=== PATIENT | male | born 1950 | race Caucasian/White ===

== ENCOUNTER 2017-10-20 07:08 | Emergency (ER) | payer MEDICARE, BC ==
--- NOTE | 2017-10-20 07:46 | EDM.PDOC ---
ED HPI GENERAL MEDICAL PROBLEM - General Time Seen by Provider: 10/20/17 07:20 Source of Information: Reports: Patient History Limitations: Reports: No Limitations - History of Present Illness INITIAL COMMENTS - FREE TEXT/NARRATIVE: According to patient he claims he has been having a uneasy feeling on the left side of the chest since last evening. 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 Later in the evening he would feel his heart racing and would resolve by itself , it was not asso with any dizziness or chest pain. Once the palpitations cleared he started to feel uneasy feeling in the left chest. the sensation does not eet worse with exertion. Pt claims he walks every day and walking makes it feel better. The feeling is constant. No sweating, nausea or vomiting. He has incontinence of stool or urine. Apparently he claims he has had murmur and had ECHO few weeks ago. Onset Date: 10/19/17 Onset Time: 18:00 Location: Reports: Chest Quality: Reports: Pressure Severity: Mild Improves with: Reports: None Worsens with: Reports: None Associated Symptoms: Reports: Chest Pain (more of pressure or uneasy sensation) . Denies: Confusion, Cough, Fever/Chills, Headaches, Nausea/Vomiting, Rash, Seizure, Shortness of Breath, Syncope, Weakness Left Chest Pain Score (Numeric/FACES): 3 - Related Data Allergies Allergy/AdvReac Type Severity Reaction Status Date / Time No Known Allergies Allergy Verified 12/31/14 09:04 Home Meds: Home Meds Aspirin [Halfprin] 81 mg PO DAILY 12/31/14 [History] Cholecalciferol (Vitamin D3) [Cholecalciferol] 1 gm MC DAILY 12/31/14 [History] Losartan [Cozaar] 50 mg PO DAILY 12/31/14 [History] [place]-3 Fatty Acids [[place]-3] 1,000 mg PO DAILY 12/31/14 [History] Simvastatin 40 mg PO DAILY 12/31/14 [History] Social & Family History - Tobacco Use Smoking Status *Q: Former Smoker Years of Tobacco use: 6 Second Hand Smoke Exposure: No - Alcohol Use Days Per Week of Alcohol Use: 5 Number of Drinks Per Day: 2 Total Drinks Per Week: 10 - Recreational Drug Use Recreational Drug Use: No ED ROS GENERAL - Review of Systems Review Of Systems: See Below Constitutional: Denies: Fever, Chills HEENT: Denies: Rhinitis, Sinus Problem, Throat Pain, Throat Swelling Respiratory: Denies: Shortness of Breath, Cough, Sputum Cardiovascular: Denies: Chest Pain, Dyspnea on Exertion, Edema, Lightheadedness GI/Abdominal: Denies: Flatus, Hematemesis, Hematochezia, Stool Incontinence : Denies: Dysuria, Incontinence, Urinary Retention Musculoskeletal: Denies: Joint Pain, Joint Swelling Skin: Denies: Pruritis, Rash ED EXAM, GENERAL - Physical Exam Exam: See Below Exam Limited By: No Limitations General Appearance: Alert, WD/WN, No Apparent Distress Eye Exam: Bilateral Eye: EOMI, PERRL Ears: Normal External Exam, Normal Canal, Hearing Grossly Normal, Normal TMs Ear Exam: Bilateral Ear: Auricle Normal, Canal Normal, TM normal Nose: Normal Inspection, Normal Mucosa, No Blood Throat/Mouth: Normal Inspection, Normal Lips, Normal Teeth, Normal Gums, Normal Oropharynx, Normal Voice, No Airway Compromise Head: Atraumatic, Normocephalic Neck: Normal Inspection, Supple, Non-Tender, Full Range of Motion Respiratory/Chest: No Respiratory Distress, Lungs Clear, Normal Breath Sounds, No Accessory Muscle Use, Chest Non-Tender Cardiovascular: Normal Peripheral Pulses, Regular Rate, Rhythm, No Edema, No Gallop, No JVD, No Murmur, No Rub Peripheral Pulses: 2+: Carotid (L), Carotid (R), Radial (L), Radial (R) GI/Abdominal: Normal Bowel Sounds, Soft, Non-Tender, No Organomegaly, No Distention, No Abnormal Bruit, No Mass Extremities: Normal Inspection, Normal Range of Motion, Non-Tender, Normal Capillary Refill, No Pedal Edema Neurological: Alert, Oriented, CN II-XII Intact, Normal Cognition, Normal Gait, Normal Reflexes, No Motor/Sensory Deficits Psychiatric: Normal Affect, Normal Mood EKG INTERPRETATION EKG Date: 10/20/17 Rhythm: NSR [place]: Normal P-Wave: Present QRS: Normal ST-T: Normal QT: Normal Course - Vital Signs Text/Narrative:: Pt's EKG is in NSR. Also his monitor shows Regular rhythm. His Vitals are stable. Also he claims exertion does not bother him. his symptoms are nonspecific.recent ECHO shows EF of 65 % with no valvular disease. He has remained stable in the emergency room. His CBC is normal. CMP is normal other than Blood sugar of 238. Troponin is negative( Considering his symptoms since last night if this is coronary event should have positive troponin). Chest Xray is normal. Pt reassured that he is not having any acute cardiac event. On further questioning patient, he says he does get racing heart after he eats his meals and naturally resolves. I did check patient's clinic chart, he has been diabetic since 2014 with elevated HBAIC and he has not been on medications.his last HBAIC was 7.5. Pt has been to [facility] program and trying to get his sugars control by life style modification. his postprandial palpitations are related to his uncontrolled blood sugar. I have discussed this with patient. he might have SVT with elevated blood sugar.Still patient has been discharged with Zios patch to monitor his rhythm. Pt claims that he cannot tolerate metformin. Hence I am starting him on small dose of glucotrol 5mg BID with breakfast and supper.Continue to monitor blood sugars and monitor his blood sugars. followup with Dr. Johnson in clinic. Last Recorded V/S: Last Vital Signs Temp 98.2 F 10/20/17 08:13 Pulse 63 10/20/17 08:13 Resp 16 10/20/17 08:13 BP 110/50 L 10/20/17 08:13 Pulse Ox 97 10/20/17 08:13 - Orders/Labs/Meds Orders: Active Orders 24 hr Category Date Time Status EKG Documentation Completion [RC] ASDIRECTED Care 10/20/17 07:40 Active Chest 1V Frontal [CR] Stat Exams 10/20/17 07:42 Taken EKG 12 Lead [EK] Routine Ther 10/20/17 07:39 Ordered Holter Monitor 3-14 Day [EK] Stat Ther 10/20/17 08:48 Ordered Labs: Laboratory Tests 10/20/17 10/20/17 10/20/17 Range/Units 07:35 07:35 07:35 WBC 4.3 D (4.0-11.0) K/uL RBC 4.74 (4.50-6.50) M/uL Hgb 14.8 (13.0-18.0) g/dL Hct 43.4 (40.0-54.0) % MCV 92 (76-96) fL MCH 31.2 (27.0-32.0) pg MCHC 34.1 (31.0-35.0) g/dL RDW 13.8 (11.0-16.0) % Plt Count 189 (150-400) K/uL MPV 9.5 (6.0-10.0) fL Neut % (Auto) 59.4 (45.0-70.0) % Lymph % (Auto) 26.5 (20.0-40.0) % [place] % (Auto) 10.8 H (3.0-10.0) % Eos % (Auto) 2.8 (1.0-5.0) % Baso % (Auto) 0.5 (0.0-0.5) % Neut # (Auto) 2.54 (2.00-7.50) K/uL Lymph # (Auto) 1.13 L (1.50-4.00) K/uL [place] # (Auto) 0.46 (0.20-0.80) K/uL Eos # (Auto) 0.12 (0.04-0.40) K/uL Baso # (Auto) 0.02 (0.02-0.10) K/uL PT (9.0-11.5) sec INR (1.0-3.5) APTT 24.3 L (27.0-35.0) SECONDS Sodium 138 (136-145) mmol/L Potassium 4.1 (3.5-5.1) mmol/L Chloride 102 (98-107) mmol/L Carbon Dioxide 24.3 (21.0-32.0) mmol/L Anion Gap 15.8 H (5.0-15.0) mmol/L BUN 17 D (8-26) mg/dL Creatinine 0.93 (0.70-1.30) mg/dL Est Cr Clr Drug Dosing 80.97 mL/min Estimated GFR (MDRD) > 60 (>60) MLS/MIN BUN/Creatinine Ratio 18.3 (6-25) Glucose 238 H (74-100) mg/dL Calcium 8.9 (8.5-10.1) mg/dL Total Bilirubin 0.7 (0.0-1.0) mg/dL AST 27 (15-37) U/L ALT 52 (12-78) U/L Alkaline Phosphatase 69 (46-116) U/L Troponin I < 0.017 (0.000-0.060) ng/mL Total Protein 7.2 (6.4-8.2) g/dL Albumin 3.8 (3.4-5.0) g/dL Globulin 3.4 (2.2-4.2) g/dL Albumin/Globulin Ratio 1.1 (0.8-2.0) 10/20/17 Range/Units 07:35 WBC (4.0-11.0) K/uL RBC (4.50-6.50) M/uL Hgb (13.0-18.0) g/dL Hct (40.0-54.0) % MCV (76-96) fL MCH (27.0-32.0) pg MCHC (31.0-35.0) g/dL RDW (11.0-16.0) % Plt Count (150-400) K/uL MPV (6.0-10.0) fL Neut % (Auto) (45.0-70.0) % Lymph % (Auto) (20.0-40.0) % [place] % (Auto) (3.0-10.0) % Eos % (Auto) (1.0-5.0) % Baso % (Auto) (0.0-0.5) % Neut # (Auto) (2.00-7.50) K/uL Lymph # (Auto) (1.50-4.00) K/uL [place] # (Auto) (0.20-0.80) K/uL Eos # (Auto) (0.04-0.40) K/uL Baso # (Auto) (0.02-0.10) K/uL PT 9.8 (9.0-11.5) sec INR 1.0 (1.0-3.5) APTT (27.0-35.0) SECONDS Sodium (136-145) mmol/L Potassium (3.5-5.1) mmol/L Chloride (98-107) mmol/L Carbon Dioxide (21.0-32.0) mmol/L Anion Gap (5.0-15.0) mmol/L BUN (8-26) mg/dL Creatinine (0.70-1.30) mg/dL Est Cr Clr Drug Dosing mL/min Estimated GFR (MDRD) (>60) MLS/MIN BUN/Creatinine Ratio (6-25) Glucose (74-100) mg/dL Calcium (8.5-10.1) mg/dL Total Bilirubin (0.0-1.0) mg/dL AST (15-37) U/L ALT (12-78) U/L Alkaline Phosphatase (46-116) U/L Troponin I (0.000-0.060) ng/mL Total Protein (6.4-8.2) g/dL Albumin (3.4-5.0) g/dL Globulin (2.2-4.2) g/dL Albumin/Globulin Ratio (0.8-2.0) Meds: Medications Discontinued Medications Generic Name Dose Route Start Last Admin Trade Name Adrien PRN Reason Stop Dose Admin Lorazepam 1 mg 10/20/17 07:48 10/20/17 07:56 Ativan PO 10/20/17 07:49 1 mg ONETIME ONE Administration Lorazepam Confirm 10/20/17 08:00 Ativan Administered 10/20/17 08:01 Dose 1 mg .ROUTE .STK-MED ONE Departure - Departure Time of Disposition: 09:00 Disposition: Home, Self-Care 01 Condition: Fair Clinical Impression: Palpitation - Discharge Information Instructions: Type 2 Diabetes Mellitus, Diagnosis, Adult Referrals: PCP,None [Ordering Only Provider] - Forms: ED Department Discharge Additional Instructions: Pt's EKG is in NSR. Also his monitor shows Regular rhythm. His Vitals are stable. Also he claims exertion does not bother him. his symptoms are nonspecific.recent ECHO shows EF of 65 % with no valvular disease. He has remained stable in the emergency room. His CBC is normal. CMP is normal other than Blood sugar of 238. Troponin is negative( Considering his symptoms since last night if this is coronary event should have positive troponin). Chest Xray is normal. Pt reassured that he is not having any acute cardiac event. On further questioning patient, he says he does get racing heart after he eats his meals and naturally resolves. I did check patient's clinic chart, he has been diabetic since 2014 with elevated HBAIC and he has not been on medications.his last HBAIC was 7.5. Pt has been to [facility] program and trying to get his sugars control by life style modification. his postprandial palpitations are related to his uncontrolled blood sugar. I have discussed this with patient. he might have SVT with elevated blood sugar.Still patient has been discharged with Zios patch to monitor his rhythm. Pt claims that he cannot tolerate metformin. Hence I am starting him on small dose of glucotrol 5mg BID with breakfast and supper.Continue to monitor blood sugars and monitor his blood sugars. followup with Dr. Johnson in clinic. Care Plan Goals: Follow up with Dr Morrow for diabetic management. Make an appointment at your convenience. Take medications as prescribed. - Problem List & Annotations (1) Palpitation SNOMED Code(s): 35467370 Code(s): R00.2 - PALPITATIONS Status: Acute Current Visit: Yes - Problem List Review Problem List Initiated/Reviewed/Updated: Yes - My Orders Last 24 Hours: My Active Orders 10/20/17 07:39 EKG 12 Lead [EK] Routine 10/20/17 07:40 EKG Documentation Completion [RC] ASDIRECTED 10/20/17 07:42 Chest 1V Frontal [CR] Stat 10/20/17 08:48 Holter Monitor 3-14 Day [EK] Stat - Assessment/Plan Last 24 Hours: My Active Orders 10/20/17 07:39 EKG 12 Lead [EK] Routine 10/20/17 07:40 EKG Documentation Completion [RC] ASDIRECTED 10/20/17 07:42 Chest 1V Frontal [CR] Stat 10/20/17 08:48 Holter Monitor 3-14 Day [EK] Stat Assessment:: Palpitations Uncontrolled diabetes Plan: Pt's EKG is in NSR. Also his monitor shows Regular rhythm. His Vitals are stable. Also he claims exertion does not bother him. his symptoms are nonspecific.recent ECHO shows EF of 65 % with no valvular disease. He has remained stable in the emergency room. His CBC is normal. CMP is normal other than Blood sugar of 238. Troponin is negative( Considering his symptoms since last night if this is coronary event should have positive troponin). Chest Xray is normal. Pt reassured that he is not having any acute cardiac event. On further questioning patient, he says he does get racing heart after he eats his meals and naturally resolves. I did check patient's clinic chart, he has been diabetic since 2015 with elevated HBAIC and he has not been on medications.his last HBAIC was 7.5. Pt has been to [facility] program and trying to get his sugars control by life style modification. his postprandial palpitations are related to his uncontrolled blood sugar. I have discussed this with patient. he might have SVT with elevated blood sugar.Still patient has been discharged with Zios patch to monitor his rhythm. Pt claims that he cannot tolerate metformin. Hence I am starting him on small dose of glucotrol 5mg BID with breakfast and supper.Continue to monitor blood sugars and monitor his blood sugars. followup with Dr. Johnson in clinic.
[2017-10-20] MEDS: LORazepam 1 MG Tab PO ONE (07:56)
[2017-10-20] MEDS ORDERED: LORazepam 1 MG Tab ONE (08:00)
[2017-10-20 08:14] VITALS: BP 110/50
--- NOTE | 2017-10-20 11:12 | CR ---
PORTABLE CHEST, 10/20/17 Comparison made to a prior exam dated 05/18/15. The heart size is within normal limits. The aorta is ectatic. The lungs are clear. No pneumothorax. No pleural effusions. [id number] [facility]
== END 2017-10-20 09:15 | disposition home or self-care (01) ==
LOC: LB.ED 07:08
DX: R00.2 Palpitations (principal); Z79.82 Long term (current) use of aspirin; Z87.891 Personal history of nicotine dependence
CPT/HCPCS: 0296T; 0297T; 36415; 71045; 80053; 84484; 85025; 85610; 85730; 93005; 99285; 99285-25; A9270-GY